=== PATIENT | male | born 1990 | race Caucasian/White ===

== ENCOUNTER 2017-06-15 12:24 | Emergency (ER) | payer OTHER ==
[~2017-06-15] VITALS: Ht 185.4 cm; Wt 72.6 kg
[2017-06-15 12:42] VITALS: BP 131/74
[2017-06-15] MEDS ORDERED: TOPI-37 PO (12:48)
[2017-06-15] MEDS ORDERED: OXCA300T PO (12:48)
== END 2017-06-15 13:30 | disposition home or self-care (01) ==
LOC: ER 12:27
DX: Z76.0 Encounter for issue of repeat prescription (principal); F12.90 Cannabis use, unspecified, uncomplicated; G40.909 Epilepsy, unspecified, not intractable, without status epilepticus; F17.200 Nicotine dependence, unspecified, uncomplicated
CPT/HCPCS: A4606; Z7610